=== PATIENT | male | born 1960 | race African-American/Black ===

== ENCOUNTER 2023-07-23 11:05 | Emergency (ER) | payer MEDICARE, MEDICAID ==
[~2023-07-23] VITALS: Ht 182.9 cm; Wt 96.0 kg
[~2023-07-23 11:05] MED LIST: LACO200T2 PO; dilantin; keppra
[2023-07-23 11:08] VITALS: O2SAT 97
[2023-07-23 11:51] LABS: BASOPHILS % 1.1 % (0.0-2.0); EOSINOPHILS % 0.8 % (0.0-5.0); MEAN CORPUSCULAR HEMOGLOBIN 32.3 pg (28.0-32.0); MEAN CORPUSCULAR VOLUME 94.9 fL (80.0-94.0); MEAN PLATELET VOLUME 7.6 fl (7.4-10.4); MONOCYTES % 13.1 % (2.0-8.0); PLATELET 271 x1000/uL (130-400); RED BLOOD CELL COUNT 4.33 mill/uL (4.7-6.1); RED CELL DISTRIBUTION WIDTH 13.7 % (11.6-14.6); WHITE BLOOD COUNT 6.5 x1000/uL (4.5-11.0)
[2023-07-23 12:09] LABS: ALANINE AMINOTRANSFERASE 25 IU/L (10-49); ALBUMIN 4.2 g/dL (3.2-4.8); ASPARTATE AMINOTRANSFERASE 34 IU/L (<34); BILIRUBIN TOTAL 0.4 mg/dL (0.1-1.0); CALCIUM 8.8 mg/dL (8.7-10.4); CARBON DIOXIDE 27 mEq/L (21-32); CHLORIDE 103 mEq/L (98-107); CREATININE 1.1 mg/dL (0.6-1.3); GLUCOSE 57 mg/dL (70-105); PROTEIN TOTAL 8.8 g/dL (6.0-8.3); SODIUM 139 mEq/L (136-145); UREA NITROGEN BLOOD 18 mg/dL (9-23)
[2023-07-23] MEDS: SODIUM CHLORIDE 0.9% 1,000 ML IV ONE (12:26)
[2023-07-23] MEDS: LEVETIRACETAM 1000MG PREMIX 100 ML IV ONE (12:26)
[2023-07-23] MEDS: LEVETIRACETAM 500MG TABLET PO SCH (12:26)
[2023-07-23 12:40] LABS: CARBAMAZEPINE < 0.4 ug/mL (4-12); ETHANOL BLOOD < 10 mg/dL (<10); PHENOBARBITAL < 3.0 ug/mL (15.0-40.0); PHENYTOIN < 2.0 ug/mL (10-20); VALPROIC ACID < 3.0 ug/mL (50-100)
[2023-07-23 17:10] VITALS: BP 123/71; PULSE 72; RESP 16; TEMP 97.5
== END 2023-07-23 17:51 | disposition home or self-care (01) ==
LOC: ER 11:05
DX: S00.81XA Abrasion of other part of head, initial encounter (principal); G40.909 Epilepsy, unspecified, not intractable, without status epilepticus; I25.2 Old myocardial infarction; Z86.73 Personal history of transient ischemic attack (TIA), and cerebral infarction without residual deficits; Z98.890 Other specified postprocedural states; X58.XXXA Exposure to other specified factors, initial encounter; Y93.89 Activity, other specified; Y92.89 Other specified places as the place of occurrence of the external cause; Y99.8 Other external cause status
CPT/HCPCS: 80053; 80320; 80156; 80185; 82962; 80184; 80165; 85025; 36415; 70450; 96365; 96366; 99285; J1953; J7030; G0480

== ENCOUNTER 2023-07-26 03:04 | Emergency (ER) | payer MEDICARE, MEDICAID ==
[~2023-07-26] VITALS: Ht 188 cm; Wt 78.0 kg
[2023-07-26 03:09] VITALS: O2SAT 99
[2023-07-26] MEDS: LEVETIRACETAM 1000MG PREMIX 100 ML IV ONE (04:00)
[2023-07-26] MEDS ORDERED: LEVE750T4 MT (05:51)
[2023-07-26 06:01] VITALS: TEMP 97.7
[2023-07-26 11:30] VITALS: BP 137/82; PULSE 60; RESP 16
== END 2023-07-26 12:03 | disposition home or self-care (01) ==
LOC: ER 03:04
DX: R56.9 Unspecified convulsions (principal); I10 Essential (primary) hypertension
CPT/HCPCS: 99285; 96365; 96366; 93005; J1953

== ENCOUNTER 2023-10-05 02:07 | Emergency (ER) | payer MEDICARE, MEDICAID ==
[~2023-10-05] VITALS: Ht 177.8 cm; Wt 96.0 kg
[~2023-10-05 02:07] MED LIST changes: +LEVE750T4 MT
[2023-10-05 02:10] VITALS: O2SAT 98
[2023-10-05 03:27] LABS: HEMOGLOBIN. 12.5 g/dL (14.0-18.0); MEAN CORPUSCULAR HEMOGLOBIN 32.1 pg (28.0-32.0); MEAN CORPUSCULAR HGB CONC 33.9 g/dL (31.0-37.0); MEAN CORPUSCULAR VOLUME 94.7 fL (80.0-94.0); MEAN PLATELET VOLUME 7.7 fl (7.4-10.4); PLATELET 294 x1000/uL (130-400); RED BLOOD CELL COUNT 3.91 mill/uL (4.7-6.1); RED CELL DISTRIBUTION WIDTH 13.4 % (11.6-14.6)
[2023-10-05] MEDS: LEVETIRACETAM 500MG PREMIX 100 ML IV ONE ×2 (03:30→04:04)
[2023-10-05] MEDS: LORAZEPAM 2MG/ML INJ IV ONE (03:31)
[2023-10-05 03:34] LABS: DIFFERENTIAL COMMENT 1
[2023-10-05 03:35] LABS: CARBON DIOXIDE 26 mEq/L (21-32); CHLORIDE 102 mEq/L (98-107); SODIUM 137 mEq/L (136-145)
[2023-10-05 03:36] LABS: CALCIUM 9.1 mg/dL (8.7-10.4)
[2023-10-05 03:40] LABS: CREATININE 1.2 mg/dL (0.6-1.3)
[2023-10-05 03:41] LABS: ETHANOL BLOOD < 10 mg/dL (<10); GLUCOSE 91 mg/dL (70-105); UREA NITROGEN BLOOD 17 mg/dL (9-23)
[2023-10-05 04:08] LABS: ATYPICAL LYMPHOCYTES 2; PLATELET ESTIMATE NORMAL
[2023-10-05 04:09] LABS: OVALOCYTES 1+; TARGET CELLS 1+; TEAR DROP CELLS 1+
[2023-10-05] MEDS ORDERED: LEVE750T4 MT (06:12)
[2023-10-05 11:00] VITALS: BP 136/90; PULSE 45; RESP 10; TEMP 98.6
== END 2023-10-05 11:19 | disposition home or self-care (01) ==
LOC: ER 02:07
DX: R56.9 Unspecified convulsions (principal); I10 Essential (primary) hypertension; Z86.73 Personal history of transient ischemic attack (TIA), and cerebral infarction without residual deficits
CPT/HCPCS: 80048; 80320; 85025; 36415; 96365; 96366; 99285; J1953; J2060; G0480

== ENCOUNTER 2025-03-06 21:58 | Emergency (ER) | payer MEDICARE, MEDICAID ==
[~2025-03-06] VITALS: Ht 170.2 cm; Wt 73.0 kg
[2025-03-06 22:14] VITALS: O2SAT 98
[2025-03-06] MEDS: ACETAMINOPHEN 500MG TABLET PO ONE (23:19)
[2025-03-07] MEDS ORDERED: ACET-2708 MT (00:02)
[2025-03-07 00:45] VITALS: BP 145/89; PULSE 58; RESP 15; TEMP 36.6; O2SAT 98
== END 2025-03-07 00:50 | disposition home or self-care (01) ==
LOC: ER 21:58
DX: S01.01XA Laceration without foreign body of scalp, initial encounter (principal); R56.9 Unspecified convulsions; I10 Essential (primary) hypertension; Z86.73 Personal history of transient ischemic attack (TIA), and cerebral infarction without residual deficits; W01.10XA Fall on same level from slipping, tripping and stumbling with subsequent striking against unspecified object, initial encounter; Y93.89 Activity, other specified; Y92.89 Other specified places as the place of occurrence of the external cause; Y99.8 Other external cause status
CPT/HCPCS: 12001; 99284